=== PATIENT | male | born 1990 | race American Indian/Alaskan Native ===

== ENCOUNTER 2018-04-15 14:49 | Emergency (ER) | payer BC ==
--- NOTE | 2018-04-15 16:04 | ED PDOC ---
HPI: Fever Time Seen by Provider: 04/15/18 15:22 Fever Onset Was: 04/12/18 The Fever Was Measured: Oral (102.7) Recent Sick Contacts: No Have you had recent travel within the past 21 days to any of the following countries: [place], [place], [place] or [place]?: No Symptoms Associated With Fever: Other (headache) Additional Comments: 27 year old male with a history of htn and asthma presents to the ED for evaluation of fever since Saturday. He reports a Tmax of 102.7 orally. Symptoms started on Saturday after he went to the dentist to have plaque cleaned off teeth. He saw his PMD yesterday who prescribed him Augmentin for presumd gingivitis, which patient has taken 2 doses of so far. His only associated symptom is intermittent headache - none now. Patient denies chills, cough, nausea, vomiting, diarrhea, chest pain, abdominal pain, sick contacts, travel, ear pain, throat pain, neck pain/stiffness, visual changes, dizziness, mouth pain, dental pain or any other medical complaints. PMD: Dr. El Woodruff Past Medical History Reviewed: Historical Data, Nursing Documentation, Vital Signs Vital Signs: Last Vital Signs Temp 99.0 F 04/15/18 15:12 Pulse 96 H 04/15/18 15:12 Resp 16 04/15/18 15:12 BP 132/82 04/15/18 15:12 Pulse Ox 98 04/15/18 15:12 - Medical History PMH: Asthma, HTN - Surgical History Other surgeries: Cyst removal from scalp - Family History Family History: States: Unknown Family Hx - Social History Current smoker - smoking cessation education provided: No Ex-Smoker (has not smoked in the last 12 months): Yes (75 days) Alcohol: Social Drugs: Denies - Home Medications Home Medications: Ambulatory Orders Medication Instructions Recorded Acetaminophen [Acetaminophen 8 650 mg PO Q8 PRN #21 tablet.er 04/15/18 Hour] RX: Ibuprofen [Motrin Tab] 800 mg PO Q8 PRN #21 tab 04/15/18 - Allergies Allergies/Adverse Reactions: Allergies Allergy/AdvReac Type Severity Reaction Status Date / Time morphine Allergy RASH Verified 04/15/18 15:12 shellfish derived Allergy ANAPHYLAXIS Verified 04/15/18 15:12 Review of Systems ROS Statement: Except As Marked, All Systems Reviewed And Found Negative Constitutional: Positive for: Fever. Negative for: Chills ENT: Positive for: Other (no dental pain). Negative for: Ear Pain, Mouth Pain, Throat Pain Cardiovascular: Negative for: Chest Pain Respiratory: Negative for: Cough Gastrointestinal: Negative for: Nausea, Vomiting, Abdominal Pain, Diarrhea Neurological: Positive for: Headache Physical Exam - Reviewed Nursing Documentation Reviewed: Yes Vital Signs Reviewed: Yes - Physical Exam Comments: GENERAL APPEARANCE: Patient is awake, alert, oriented x 3, in no acute distress. Resting comfortably. (+) obese SKIN: Warm, dry; (-) cyanosis, (-) rash. EYES: (-) conjunctival pallor, (-) scleral icterus, (-) conjunctival hemorrhage. ENMT: Mucous membranes moist. TMs: (-) erythema (-) bulging. Airway patent: (-) stridor. Pharynx: clear, uvula midline (-) erythema, (-) exudate. Dentition intact and nontender. (-) gingival erythema, exudate, or fluctuance. NECK: Supple, FROM(-) tenderness, (-) stiffness, (-) meningismus, (-) lymphaden opathy. CHEST AND RESPIRATORY: (-) rales, (-) rhonchi, (-) wheezes; breath sounds equal bilaterally. Respirations even and nonlabored. HEART AND CARDIOVASCULAR: (-) irregularity ABDOMEN AND GI: Soft; (-) tenderness, (-) guarding (-) CVA tenderness. EXTREMITIES: (-) deformity; (-) cellulitis NEURO AND PSYCH: Mental status as above; (-) focal findings. Gait: steady. Speech: clear. - Laboratory Results Result Diagrams: 04/15/18 16:52 04/15/18 16:52 - ECG O2 Sat by Pulse Oximetry: 98 (RA) Pulse Ox Interpretation: Normal Medical Decision Making Medical Decision Making: Time: 1530 Initial Impression: fever Initial Plan: --BMP --CBC with differentials --NS --Blood culture --Influenza A B --Rapid strep 1734 CBC and BMP unremarkable. Additional saline 1L bolus ordered. 1804 Influenza: Negative Rapid Strep: Negative 0 On re-evaluation, patient reports of a 6/10 global headache. Neuro exam remains nonfocal. Patient drinking tea and interacting with partner at bedside. Toradol 30mg IVP and Tylenol 650MG PO ordered. 1999 On re-evaluation, patient reports improvement of symptoms, including headache. On exam, patient remains AAOx3, in no acute distress. Lungs clear to auscultation, cardiac RRR, abdomen soft, non-tender, repeat neuro exam shows no focal findings. Neck remains supple with FROM (-) rigidity. VSS, stable for discharge. Strict return precautions given. Lab /Diagnostic results d/w the patient in great detail. Diagnosis of fever, probable viral illness d/w the patient. Based on history, exam and diagnostic results, plan will be for outpatient follow up with PMD. Fluids encouraged. Patient instructed to follow-up with pmd / referral provided / the clinic in 1- 2 days without fail. Advised to take medication as prescribed. Return to the emergency room at any time for any new or worsening symptoms. Patient states he fully agrees with and understands discharge instructions. States that he agrees with the plan and disposition. Verbalized and repeated discharge instructions and plan. I have given the patient opportunity to ask any additional questions. Scribe Attestation: Documented by Deb Pradhan, acting as a scribe for Mame Wren PA-C Provider Scribe Attestation: All medical record entries made by the Scribe were at my direction and personally dictated by me. I have reviewed the chart and agree that the record accurately reflects my personal performance of the history, physical exam, medical decision making, and the department course for this patient. I have also personally directed, reviewed, and agree with the discharge instructions and disposition. Disposition - Clinical Impression Clinical Impression: Fever, Viral syndrome, Headache - Patient ED Disposition Is Patient to be Admitted: No Counseled Patient/Family Regarding: Studies Performed, Diagnosis, Need For Followup, Rx Given - Disposition Referrals: Ranjan DUFF,[facility] [Non-Staff] - Disposition: Routine/Home Disposition Time: 20:00 Condition: STABLE Additional Instructions: CONTINUE ANTIBIOTICS PRESCRIBED FROM PMD. RETURN TO ED WITH ANY WORSENING HEADACHES OR PERSISTENT FEVER. The emergency medical care you received today was directed towards the acute presenting symptoms. If you were prescribed any medication, please fill it and give as directed. It may take several days for your symptoms to resolve. Return to the Emergency Department at any time if symptoms worsen, do not improve, or if any other problems arise. Please contact your doctor in 2 days for re-evaluation and follow up / or call one of the physicians/clinics you have been referred to that are listed on the Patient Visit Information form that is included in your discharge packet. Bring any paperwork you were given at discharge with you along with any medications to your follow up visit. Our treatment cannot replace ongoing medical care by a primary care provider (PCP) outside of the emergency department. Prescriptions: Acetaminophen [Acetaminophen 8 Hour] 650 mg PO Q8 PRN #21 tablet.er PRN Reason: Fever >100.4 F RX: Ibuprofen [Motrin Tab] 800 mg PO Q8 PRN #21 tab PRN Reason: Fever >100.4 F Instructions: Headache, Adult, Fever, Adult (DC), When to Worry About a Fever Forms: [employer] (Thai) Print Language: GREEK - POA Present On Arrival: None Results - Lab Results Lab Results: 04/15/18 04/15/18 04/15/18 16:52 16:52 16:52 WBC 3.5 L RBC 5.31 Hgb 14.0 Hct 42.2 MCV 79.5 L MCH 26.3 L MCHC 33.1 RDW 13.9 Plt Count 208 MPV 8.3 Neut % (Auto) 60.0 Lymph % (Auto) 25.3 [place] % (Auto) 14.3 H Eos % (Auto) 0.0 Baso % (Auto) 0.4 Neut # (Auto) 2.1 Lymph # (Auto) 0.9 L [place] # (Auto) 0.5 Eos # (Auto) 0.0 Baso # (Auto) 0.0 Sodium Potassium Chloride Carbon Dioxide Anion Gap BUN Creatinine Est GFR ( Amer) Est GFR (Non-Af Amer) Random Glucose Calcium Influenza Typ A,B (EIA) Negative for flu a/b Grp A Beta Strep Ag Negative 04/15/18 16:52 WBC RBC Hgb Hct MCV MCH MCHC RDW Plt Count MPV Neut % (Auto) Lymph % (Auto) [place] % (Auto) Eos % (Auto) Baso % (Auto) Neut # (Auto) Lymph # (Auto) [place] # (Auto) Eos # (Auto) Baso # (Auto) Sodium 138 Potassium 4.4 Chloride 101 Carbon Dioxide 30 Anion Gap 11 BUN 10 Creatinine 0.8 Est GFR ( Amer) > 60 Est GFR (Non-Af Amer) > 60 Random Glucose 100 Calcium 8.9 Influenza Typ A,B (EIA) Grp A Beta Strep Ag
[2018-04-15] MEDS: Sodium Chloride 0.9% 1,000 ML IV ONE ×2 (16:44→19:28)
[2018-04-15 17:10] LABS: BASO % 0.4 % (0.0-2.0); LYMPH # 0.9 K/uL (1.0-4.3); LYMPH % 25.3 % (20.0-40.0); MEAN CELL VOLUME 79.5 fl (80.0-94.0); MEAN CORPUSCULAR HEMOGLOBIN 26.3 pg (27.0-31.0); MEAN CORPUSCULAR HGB CONC 33.1 g/dL (33.0-37.0); MEAN PLATELET VOLUME 8.3 fl (7.2-11.7); MONO # 0.5 K/uL (0.0-0.8); MONO % 14.3 % (0.0-10.0); NEUT # 2.1 K/uL (1.8-7.0); NRBC % 0.1 % (0.0-0.0); RBC 5.31 Mil/uL (4.40-5.90); RED CELL DISTRIBUTION WIDTH 13.9 % (11.5-14.5); WHITE BLOOD COUNT 3.5 K/uL (4.8-10.8)
[2018-04-15 17:15] LABS: BLOOD UREA NITROGEN 10 mg/dl (9-20); CALCIUM 8.9 mg/dL (8.4-10.2); GFR NON-AFRICAN AMERICAN > 60
[2018-04-15 20:32] VITALS: BP 103/54; PULSE 109; RESP 18; TEMP 99.5
[2018-04-18 12:28] VITALS: O2SAT 98
== END 2018-04-15 20:40 | disposition home or self-care (01) ==
LOC: H.ER 14:49
DX: R50.9 Fever, unspecified (principal); B34.9 Viral infection, unspecified; R51 Headache; I10 Essential (primary) hypertension; J45.909 Unspecified asthma, uncomplicated
CPT/HCPCS: 80048; 85025; 87040; 87070; 87430; 87804; 96361; 96374; 99283; J1885; J7040